=== PATIENT | male | born 1965 | race Caucasian/White ===

== ENCOUNTER 2016-12-15 21:56 | Emergency (ER) | payer OTHER ==
[~2016-12-15] VITALS: Ht 188 cm; Wt 100.0 kg
[2016-12-15 22:09] VITALS: BP 125/84; PULSE 78; RESP 24; O2SAT 96
[2016-12-15 23:15] LABS: BASOPHILS % (AUTO) 0.5 % (0-3); EOSINOPHILS % (AUTO) 1.2 % (0-5); MONOCYTES % (AUTO) 5.4 % (4-12); Mean Corpuscular Hemoglobin 29.2 pg (27.0-35.0); Mean Corpuscular Volume 84.1 fL (81-100); NEUTROPHILS % (AUTO) 76.7 % (40-74); Platelet Count 272 bil/L (150-400)
--- NOTE | 2016-12-15 23:30 | ED.REPORT ---
HPI-GI Bleed Date of Service Dec 15, 2016 ED Provider: Michele Prescott MD Patient is a 51 year old male with a history of IBS who presents to the ED complaining of hematemesis after eating crab tonight at 1800. Associated symptoms include nausea, abdominal pain, itching of his knees and chills. He denies diarrhea or black/tarry stool. He reports there was a couple teaspoons of blood in his emesis. The patient reports that he has vomited after eating crab before but it was not bloody at that time. Patient reports that he occasionally takes Tylenol and occasionally drinks alcohol. He is not currently on anticoagulants. Nursing Notes Stated Complaint: THROW UP BLOOD Chief Complaint: Male Abdominal Pain Nursing Notes Reviewed: Yes Allergies: Coded Allergies: No Known Allergies (Unverified , 12/15/16) Scheduled Pantoprazole DR (Protonix) 20 Mg Tablet 20 MG PO BID General Time Seen by Provider: 23:42 Chief Complaint Chief Complaint: Vomiting blood Bleeding Severity: Teaspoons Hx Obtained From: Patient Arrived By: Walk-in Onset Occurred: 1 - 4 hours ago Symptom Duration: Since onset Location: : Diffuse Quality: Painful Severity: Current: Moderate Similar Sx Previous: No Past Medical History Past Medical History IBS Social History Alcohol Use: "Social" Ambulatory Status Independent Review of Systems Constitutional: Reports: Chills GI: Reports: Abdominal pain, Hematemesis, Nausea, Denies: Bloody/tarry stool, Diarrhea Skin: Reports Itching Complete sys rev & neg: except as marked. Physical Exam Initial Vital Signs Vital Signs (First) Date Time Temp Pulse Resp B/P Pulse Ox O2 Delivery O2 Flow Rate FiO2 12/15/16 22:09 36.8 78 24 125/84 96 Room Air Initial VS: Reviewed General/Constitutional: Awake, Alert Respiratory / Chest: Atraumatic, Breath sounds NL, Breath sounds = bilat, No respiratory distress Cardiovascular: Heart rate NL, Regular rhythm, Heart sounds NL, No gallop, No murmurs, No rubs Abdomen: Atraumatic, Soft, BS normoactive Tenderness/Guarding/Rebound: Positive: Tender RUQ... Rectum / Perineum: Atraumatic, No gross blood guaiac negative Head / Eyes: Atraumatic, Normocephalic ENT: Atraumatic, Airway patent, Mucous membranes moist, Pharynx NL Skin Skin: Atraumatic, Color NL, No rash, Warm, Dry Neurologic: Oriented X3, Speech NL Interpretation & Diagnostics Interpretation & Diagnostics: US ABDOMEN: no evidence of cholecystitis Lab Results Interpretation Result Diagram: 12/15/16 2311 12/15/16 2311 Test 12/15/16 23:11 White Blood Count 10.5th/mm3 (3.8-10.1) Red Blood Count 5.61mil/mm3 (4.40-5.80) Hemoglobin 16.4g/dL (13.8-17.2) Hematocrit 47.2% (41.0-50.0) Mean Corpuscular Volume 84.1fL (81-100) Mean Corpuscular Hemoglobin 29.2pg (27.0-35.0) Mean Corpuscular Hemoglobin Concent 34.7% (32.0-37.0) Red Cell Distribution Width 14.1% (12.3-15.4) Platelet Count 272bil/L (150-400) Neutrophils (%) (Auto) 76.7% (40-74) Lymphocytes (%) (Auto) 15.8% (14-46) Monocytes (%) (Auto) 5.4% (4-12) Eosinophils (%) (Auto) 1.2% (0-5) Basophils (%) (Auto) 0.5% (0-3) Sodium Level 143mEq/L (134-144) Potassium Level 4.5mEq/L (3.5-5.2) Chloride Level 103mEq/L (97-108) Carbon Dioxide Level 26mmol/L (18-29) Blood Urea Nitrogen 11mg/dL (6-24) Creatinine 1.03mg/dL (0.76-1.27) Estimat Glomerular Filtration Rate 81mL/min (>59) Glucose Level 135mg/dL (60-99) Lactic Acid Level 1.2mmol/L (0.4-2.0) Calcium Level 9.9mg/dL (8.5-10.1) Total Bilirubin 0.4mg/dL (0.0-1.2) Aspartate Amino Transf (AST/SGOT) 22U/L (0-50) Alanine Aminotransferase (ALT/SGPT) 9U/L (0-44) Alkaline Phosphatase 46U/L (25-150) Total Protein 7.6g/dL (6.4-8.4) Albumin 4.8g/dL (3.4-5.0) Lipase 38U/L (13-60) ECG Interpretation Time: 02:24 Interpreted by: ED physician Normal ECG Interpretation: Normal rate (57), Normal sinus rhythm Re-Eval/Medical Decision Re-Evaluation/Progress #1: Time of Eval: 00:32 Re-Evaluation/Progress Note: Patient had no blood in last episode of emesis Re-Evaluation/Progress #2: Time of Eval: 01:09 Patient Status: Condition improved Re-Evaluation/Progress #3: Time of Eval: 02:26 Re-Evaluation/Progress Note: Discussed US results and plan for discharge. Patient understands and agrees to plan. All questions were addressed. Counseled Regarding: Diagnosis, Lab results, Need for follow-up, When/why to return to ED Discharge & Departure Impression: Primary Impression: Vomiting Vomiting type: hematemesis Nausea presence: with nausea Qualified Code: K92.0 - Hematemesis Additional Impression: Food allergy Disposition: Home Discharge Condition All VS Reviewed: Yes Condition: Stable Patient Instructions: Gastritis (ED) Additional Instructions: Emergency Department evaluation included interview, examination labs and ultrasound. There is no evidence of serious bleeding at present, and vomiting is improved. We looked for the presence of gallstones or inflammatory changes in the gallbladder, this was not present. Given the report that both episodes of vomiting occurred after eating crab is acted that you have developed a food allergy to crab. Do not eat crab. We recommend Protonix 20 mg twice a day to help stomach heel, blood observed in the vomit is suspected to be related to small tears in the wall of the stomach caused by vomiting. Ondansetron one every 6 hours as needed for nausea. For fevers, increasing abdominal pain, chest pain, vomiting anymore than small amounts of bright red blood or passing black stool or bright blood per rectum return to emergency department immediately. I return to [place], establish primary care and have today's symptoms further evaluated. Referrals: NOPCP (PCP) Scribe Attestation Portions of this note were transcribed by Margot Herrera. I, Dr. Prescott personally performed the history, physical exam and medical decision-making; I reviewed and confirmed the accuracy of the information in the transcribed note. Signed by: Griselda Dennis, 12/15/16 Michele Prescott MD Dec 15, 2016 23:29 Lulú Herrera Dec 15, 2016 23:37
[2016-12-15] MEDS ORDERED: Ondansetron 2 mg/mL 2 mL Inj IVPUSH ONE (23:40)
[2016-12-15] MEDS ORDERED: 0.9% Sodium Chloride 1,000 ML IV ONE (23:40)
[2016-12-16] MEDS ORDERED: Ondansetron 2 mg/mL 2 mL Inj IVPUSH ONE (00:10)
[2016-12-16] MEDS ORDERED: _Ondansetron ODT 4 mg Tablet PO PRN (02:20)
[2016-12-16] MEDS ORDERED: PANT20T PO (02:24)
[2016-12-16 02:57] VITALS: BP 121/78; PULSE 62; RESP 18; O2SAT 98
--- NOTE | 2016-12-16 08:33 | DRSVH ---
PROCEDURE: US ABDOMEN, LIMITED ([id number]) INDICATIONS: vomiting and RUQ tenderness TECHNIQUE: Real-time focused scanning was performed of the abdomen, with image documentation. COMPARISON: None. FINDINGS: Suspect small gallstones. No gallbladder wall thickening, pericholecystic fluid or sonogra phic Rios's sign. Visualized liver demonstrates normal echotexture. Common bile duct is not visuali zed. No intrahepatic biliary dilation. IMPRESSION: Suspect small gallstones. No ultrasound evidence for acute cholecystitis. No significant discrepancy with the shift engineer radiology preliminary report. Dictated by: Liz Mcbride M.D. on 12/16/2016 at 8:29 Approved by: Liz Mcbirde M.D. on 12/16/2016 at 8:32
== END 2016-12-16 02:58 | disposition home or self-care (01) ==
LOC: SED 21:56
DX: T78.1XXA Other adverse food reactions, not elsewhere classified, initial encounter (principal); Y93.89 Activity, other specified; Y92.89 Other specified places as the place of occurrence of the external cause; Y99.8 Other external cause status; K92.0 Hematemesis; R11.0 Nausea
CPT/HCPCS: 36415; 76705; 80053; 83605; 83690; 85025; 93005; 96361; 96374; 96376; 99285; J2405; J7030